=== PATIENT | female | born 1975 | race Caucasian/White ===

== ENCOUNTER 2016-09-23 18:24 | Inpatient (IN) ==
[2016-09-23] MEDS ORDERED: methylPREDNISolone 125 MG/2 ML VIAL IVP ONE (18:55)
[2016-09-23] MEDS ORDERED: Ipratropium/Albuterol Neb 3 ML IH ONE (18:55)
[2016-09-23] MEDS ORDERED: predniSONE 20 MG TABLET PO ONE (19:01)
--- NOTE | 2016-09-23 19:02 | Emergency Department Note ---
Disposition Clinical Impression: Acute exacerbation of chronic obstructive airways disease, Community acquired pneumonia Disposition: Admitted As Inpatient Condition: Good Referrals: NO,PCP [Primary Care Provider] - Forms: ED Satisfaction Letter Time of Disposition: 20:10 SOB HPI - General Chief Complaint: ED Shortness of Breath/Dyspnea Stated Complaint: TARA Time Seen by Provider: 09/23/16 19:00 Source: patient Limitations: no limitations Nursing Notes Reviewed: Yes Vital Signs Reviewed: Yes - History of Present Illness 41 year old female iwth HX of COPD non-oxygen dependent has been experiencing increased dyspnea secondary to acute bronchiitis diangosed - Related Data Previous Rx's Medication Instructions Recorded Albuterol Sulfate [Albuterol 2 puff IH Q4HR PRN #1 inhaler 08/22/16 Inhaler] Doxycycline 100 mg PO BID #14 capsule 09/19/16 GuaiFENesin/Dextromethorphan 1 each PO BID PRN #20 tab.er.12h 09/19/16 [Mucinex DM] Ipratropium/Albuterol Sulfate 4 gm IH BID PRN #1 mist.inhal 09/19/16 [Combivent Respimat Inhal [place]] Allergies Allergy/AdvReac Type Severity Reaction Status Date / Time codeine AdvReac Vomiting Verified 09/19/16 14:03 Constitutional: Reports: weakness. Denies: fever, chills, weight change Eyes: Denies: eye pain, eye discharge, vision change ENT ED: Denies: ear pain, throat pain, dental pain, hearing loss, epistaxis, congestion, dysphagia Cardiovascular: Denies: chest pain, palpitations, dyspnea on exertion, edema, syncope Respiratory: Reports: dyspnea, wheezes. Denies: hemoptysis, stridor Gastrointestinal: Denies: abdominal pain, nausea, vomiting, diarrhea, constipation, hematemesis, melena, hematochezia Genitourinary: Denies: dysuria, frequency, hematuria, discharge Musculoskeletal: Denies: back pain, neck pain, arthralgia, myalgia Integumentary: Denies: rash, abrasion, lesions Neurological: Denies: headache, weakness, numbness, paresthesias, confusion Psychiatric: Denies: anxiety, depression, suicidal thoughts, homicidal thoughts , auditory hallucinations, visual hallucinations Past Medical History - Past Medical History Medical history: Reports: COPD Surgical history: Reports: cholecystectomy Psychiatric history: Reports: no psych history SALES PLANNER 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: 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: no 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 history - Social History Smoking Status: Current every day smoker Smokeless Tobacco Status: No Alcohol use: Reports: none Drug use: Reports: none Physical Exam - General Limitations: no limitations General appearance: alert, obese - Head Head exam: atraumatic, normocephalic, normal inspection - Eye Eye exam: Present: normal appearance, PERRL, EOMI - Expanded Eye Exam Eyelids: bilateral: normal inspection Pupils: Left: reactive, Bilateral: regular, round - ENT ENT exam: normal exam, normal oropharynx, mucous membranes moist - Expanded ENT Exam External ear exam: Present: normal external inspection Mouth exam: Present: normal external inspection Teeth exam: Present: normal inspection Throat exam: Present: normal inspection - Neck Neck exam: Present: normal inspection, full ROM, trachea midline - Chest Chest inspection: Present: normal inspection, symmetric chest wall rise - Respiratory Respiratory exam: Present: wheezes (mild bilateral anterior) - Cardiovascular Cardiovascular exam: Present: regular rate, normal rhythm, normal heart sounds - Abdominal Exam Abdominal exam: Present: soft, Non-Tender. Absent: tenderness, distention, guarding, rebound, rigidity - Extremities Exam Extremities exam: Present: normal inspection, full ROM. Absent: tenderness, pedal edema - Expanded Upper Extremity Exam Shoulder exam: Present: normal inspection, full ROM Arm exam: Present: normal inspection, full ROM Elbow exam: Present: normal inspection, full ROM Forearm/Wrist exam: Present: normal inspection, full ROM Hand exam: Present: normal inspection, full ROM Vascular exam: Normal: capillary refill, radial pulse - Expanded Lower Extremity Exam Hip/Pelvis exam: Present: normal inspection, full ROM Upper leg exam: Present: normal inspection, full ROM Knee exam: Present: normal inspection, full ROM Lower leg exam: Present: normal inspection, full ROM Ankle exam: Present: normal inspection, full ROM Foot/toe exam: Present: normal inspection, full ROM Neurovascular/Tendon exam: Absent: motor deficit, sensory deficit, tendon deficit - Back Exam Back exam: Present: normal inspection, full ROM. Absent: tenderness - Neurological Exam Neurological exam: Present: alert, oriented X3 - Expanded Neurological Exam Patient oriented to: Present: person, place, time Coma Scale Eye Opening: Spontaneous Coma Scale Motor Response: Obeys Commands Coma Scale Verbal Response: Oriented Coma Scale Total: 15 - Psychiatric Psychiatric exam: Present: normal affect, normal mood - Skin Skin exam: Present: warm, dry, intact, normal color Course Course Narrative: we will do a dyspnea workup with duoneb and PO steroid and re-evaluate. - Reevaluation(s) Reevaluation #1: patient oxygen level dropped to 89% sitting at rest, and has a WBC of 17. ITEM REPAIR MANAGER shows a possible atelectasis or early pneumonia. We will start Levauquin. Time: 19:55 - Consultations Consultation #1: discussed case with hospitalist and he accepts patient to his service. Mignonnet is agrreable to plan. Time: 20:09 Vital Signs Temperature 98.1 F 09/23/16 18:26 Pulse Rate 97 09/23/16 18:26 Respiratory Rate 18 09/23/16 18:26 Blood Pressure 144/91 09/23/16 18:26 O2 Sat by Pulse Oximetry 92 09/23/16 18:26 Temperature 98.1 F 09/23/16 18:26 Pulse Rate 79 09/23/16 19:51 Respiratory Rate 18 09/23/16 19:54 Blood Pressure 133/85 09/23/16 19:51 O2 Sat by Pulse Oximetry 93 09/23/16 19:54 Oxygen Delivery Oxygen Delivery Nasal Cannula Shortness of Breath/Dyspnea - Lab Data Result diagrams: 09/23/16 19:05 09/23/16 19:05 Lab Results 09/23/16 09/23/16 09/23/16 Range/Units 19:05 19:05 19:05 WBC 17.8 H (4.3-11.1) K/mcL RBC 5.36 H (3.82-4.97) M/mcL Hgb 16.4 H (11.5-15.4) g/dL Hct 48.2 H (35.3-44.9) % MCV 89.9 (83.0-100.0) fL MCH 30.6 (28.0-33.3) pg MCHC 34.0 (31.6-35.5) g/dL RDW 13.3 (11.5-14.5) % Plt Count 319 (140-400) K/mcL MPV 9.6 (9.4-12.4) fL Immature Gran % 1.4 (0-4) % Seg Neutrophils % 71.8 % Lymphocytes % 17.8 % Monocytes % 7.2 % Eosinophils % 1.2 % Basophils % 0.6 % Neutrophils # 12.8 H (1.6-8.9) K/mcL Lymphocytes # 3.2 (0.6-4.6) K/mcL Monocytes # 1.3 (0.0-1.3) K/mcL Eosinophils # 0.2 (0.0-0.6) K/mcL Basophils # 0.1 (0.0-0.2) K/mcL Sodium 137 (136-145) mEq/L Potassium 3.8 (3.5-4.5) mEq/L Chloride 100 (98-109) mEq/L Carbon Dioxide 22 (19-29) mEq/L BUN 16 (7-20) mg/dL Creatinine 1.08 (0.57-1.11) mg/dL Est GFR ( Amer) > 60 (> 60) Est GFR (Non-Af Amer) 55 L (> 60) BUN/Creatinine Ratio 15 (6-26) Glucose 98 (70-99) mg/dL Calculated Osmolality 285 (280-300) Calcium 9.9 (8.6-10.8) mg/dL Troponin I 0.00 (0-0.03) ng/mL B-Natriuretic Peptide (0-100) pg/mL 09/23/16 Range/Units 19:05 WBC (4.3-11.1) K/mcL RBC (3.82-4.97) M/mcL Hgb (11.5-15.4) g/dL Hct (35.3-44.9) % MCV (83.0-100.0) fL MCH (28.0-33.3) pg MCHC (31.6-35.5) g/dL RDW (11.5-14.5) % Plt Count (140-400) K/mcL MPV (9.4-12.4) fL Immature Gran % (0-4) % Seg Neutrophils % % Lymphocytes % % Monocytes % % Eosinophils % % Basophils % % Neutrophils # (1.6-8.9) K/mcL Lymphocytes # (0.6-4.6) K/mcL Monocytes # (0.0-1.3) K/mcL Eosinophils # (0.0-0.6) K/mcL Basophils # (0.0-0.2) K/mcL Sodium (136-145) mEq/L Potassium (3.5-4.5) mEq/L Chloride (98-109) mEq/L Carbon Dioxide (19-29) mEq/L BUN (7-20) mg/dL Creatinine (0.57-1.11) mg/dL Est GFR ( Amer) (> 60) Est GFR (Non-Af Amer) (> 60) BUN/Creatinine Ratio (6-26) Glucose (70-99) mg/dL Calculated Osmolality (280-300) Calcium (8.6-10.8) mg/dL Troponin I (0-0.03) ng/mL B-Natriuretic Peptide < 10 (0-100) pg/mL - EKG Data EKG attestation: Yes I reviewed and interpreted this EKG. EKG results narrative: NSr with rate of 92. NO STEMI. normal intervals. no old ekg. 1849 Attestation Statement - Attestation Attestation: I personally interviewed and examined this patient and my medical decision- making was reviewed with the ED Resident Physician, Dr. Monson. I agree with the documented findings, disposition and treatment plan as described except to the extent set forth below. Patient is a 41-year-old white femal with a history of COPD who presents to the emergency department with ongoing shortness of breath cough and upper respiratory symptoms with hypoxia on room air. Patient was recently on antibiotics for bronchitis with no improvement in symptoms and arrives hypoxic but no signs of acute respiratory distress on arrival. Patients received aerosols and steroids here in the emergency department, has no obvious infiltrate although some linear scarring in the left lung base questionable for early pneumonia. Patient with no significant improvement in oxygen requirement during treatment in the ED. We will recommend she be admitted for acute exacerbation of her COPD and failure of outpatient treatment. We will cover patient with Levaquin IV and admitted for further evaluation and treatment.
[2016-09-23 19:12] LABS: Basophils # 0.1 K/mcL (0.0-0.2); Basophils % 0.6 %; Eosinophils # 0.2 K/mcL (0.0-0.6); Eosinophils % 1.2 %; Hematocrit 48.2 % (35.3-44.9); Hemoglobin 16.4 g/dL (11.5-15.4); Immature Granulocytes % 1.4 % (0-4); Lymphocytes # 3.2 K/mcL (0.6-4.6); Lymphocytes % 17.8 %; Mean Corpuscular Hemoglobin 30.6 pg (28.0-33.3); Mean Corpuscular Volume 89.9 fL (83.0-100.0); Mean Platelet Volume 9.6 fL (9.4-12.4); Monocytes # 1.3 K/mcL (0.0-1.3); Monocytes % 7.2 %; Neutrophils # 12.8 K/mcL (1.6-8.9); Platelet Count 319 K/mcL (140-400); Red Blood Count 5.36 M/mcL (3.82-4.97); Red Cell Distribution Width 13.3 % (11.5-14.5); Segmented Neutrophils % 71.8 %
[2016-09-23 19:23] LABS: BUN/Creatinine Ratio 15 (6-26); Blood Urea Nitrogen 16 mg/dL (7-20); Calcium 9.9 mg/dL (8.6-10.8); Carbon Dioxide 22 mEq/L (19-29); Chloride 100 mEq/L (98-109); Glucose 98 mg/dL (70-99); Osmolality,Calculated 285 (280-300); Potassium 3.8 mEq/L (3.5-4.5); Sodium 137 mEq/L (136-145); eGFR For African Americans > 60 (> 60); eGFR For Non-African Americans 55 (> 60)
[2016-09-23] MEDS ORDERED: Levofloxacin 750 MG/150 ML 750 MG/150 ML BAG IVPB ONE (19:55)
[2016-09-23] MEDS: Acetaminophen 325 MG TABLET PO PRN (22:19)
--- NOTE | 2016-09-24 03:49 | Internal Med History&Physical ---
Date of Encounter: 09/24/16 Time of Encounter: 01:30 Assessment and Plan (1) Acute exacerbation of chronic obstructive airways disease Current visit: Yes Status: Acute Treat with bronchodilators, levofloxacin, steroids, Mucinex, (2) Acute respiratory failure Current visit: Yes Status: Acute Due to acute exacerbation of COPD. Supplemental O2. Obtain ABG Qualifiers: Respiratory failure complication: hypoxia Qualified Code(s): J96.01 - Acute respiratory failure with hypoxia (3) Atelectasis of left lung Current visit: Yes Status: Acute Incentive spirometer (4) Nicotine dependence Current visit: Yes Status: Chronic Does not want nicotine patches at this time Qualifiers: Nicotine product type: cigarettes Substance use status: unspecified nicotine-induced disorder Qualified Code(s): F17.219 - Nicotine dependence, cigarettes, with unspecified nicotine-induced disorders (5) Leucocytosis Current visit: Yes Status: Acute Possibly due to steroid use. Monitor Qualifiers: Leukocytosis type: unspecified Qualified Code(s): D72.829 - Elevated white blood cell count, unspecified (6) DVT prophylaxis Current visit: Yes Status: Acute [facility] Internal [facility] - H&P: HPI Chief complaint: Shortness of breath Admitted From: Emergency Dept Plans for Post Hospital Care: Home History of present illness: Ms. Massey is a 41 year old female with history of COPD, who presents to the emergency department with h/o ongoing shortness of breath on exertion, cough with sputum production. Patient was recently on antibiotics for bronchitis with no improvement in symptoms. She denies fever, chills, nausea, vomiting, hematemesis, melena, chest pain, abdominal pain, dysuria, hematuria, bowel problems. She was hypoxic (sats 88-89% on RA per verbal report), in the emergency department and started on oxygen. CXR is negative for acute infiltrate. She was given bronchodilators, steroids and levofloxacin in the emergency department. She is admitted for acute exacerbation of her COPD and failure of outpatient treatment. Past Med Surg Social Fam HX - Past Medical History Medical history: COPD Psychiatric history: no psych history - Past Surgical History Surgical History: , cholecystectomy - Social History Smoking Status: Current every day smoker Packs per day: 0.25 Smokeless Tobacco Status: No Alcohol use: none Drug use: none - Family History Mother Adopted: [place]: JONES Age: 63 Family Member Ethnicity: Non- Living Status: Still Living Hx Family Cardiac Disorders: Yes (HEART DIS - [place]) Hx Family Respiratory Disorders: Yes (COPD) Hx Family Cancer: No Hx Family GI Disorders: No Hx Family Genitourinary Disorders: No Hx Family Endocrine Disorder: Yes (DM) Hx Family Musculoskeletal Disorders: No Hx Family Neuromuscular Disorders: No Hx Family Neurologic Disorders: No Hx Family HEENT Disorders: No Hx Family Autoimmune Disorders: No Hx Family Reproductive Disorders: No Hx Family Psychosocial Disorders: No Hx Family Medical Disorders: No Internal Medicine - H&P: Meds Albuterol Sulfate [Albuterol Inhaler] 2 puff IH Q4HR PRN #1 inhaler 08/22/16 [Rx ] Doxycycline 100 mg PO BID #14 capsule 09/19/16 [Rx] GuaiFENesin/Dextromethorphan [Mucinex DM] 1 each PO BID PRN #20 tab.er.12h 09/19 [Rx] Ipratropium/Albuterol Sulfate [Combivent Respimat Inhal [place]] 4 gm IH BID PRN # 1 mist.inhal 09/19/16 [Rx] Allergies codeine Adverse Reaction (Verified 09/19/16 14:03) Vomiting All Systems PM: A 10-system review of systems was performed and is negative for pertinent findings except as documented above in the HPI. - Constitutional Vitals: Temp Pulse Resp BP Pulse Ox 98.2 F 83 15 116/77 92 09/24/16 03:17 09/24/16 03:17 09/24/16 03:17 09/24/16 03:17 09/24/16 03:17 Exam: General: Not in acute distress at the time of my evaluation HEENT: Oral mucosa is moist. No conjunctival palor or scleral icterus Neck: No obvious neck swellings Lungs: Bilateral occasional wheeze Cardiac: Regular rate and rhythm. No significant murmurs Abdomen: Obese, non tender. Bowel sounds present Genitourinary: No sanchez catheter Neurological: Alert and oriented. No gross localizing deficits Psych: Not aggressive or agitated Extremities: Mild leg edema Skin: No generalized rash Internal Med - H&P Results - Labs CBC & Chem 7: 09/23/16 19:05 09/23/16 19:05 - EKG Data -: EKG Interpreted by Myself EKG shows normal: sinus rhythm Rate: normal - Impressions ITS Impressions Chest X-Ray 09/23/16 18:56 IMPRESSION: Subtle linear density left lung base probably atelectasis or fibrosis. Otherwise examination is unremarkable and unchanged from prior D/ / Juan Manning MD / Juan Manning MD Interpreting Provider: Juan Manning MD
[2016-09-24] MEDS ORDERED: Naloxone 0.4 MG/ML INJ IVP PRN (03:53)
[2016-09-24] MEDS ORDERED: Ipratropium/Albuterol Neb 3 ML IH PRN (03:58)
[2016-09-24] MEDS: Ipratropium/Albuterol Neb 3 ML IH SCH ×4 (04:30→23:00)
[2016-09-24 05:40] LABS: Basophils # 0.1 K/mcL (0.0-0.2); Basophils % 0.3 %; Eosinophils % 0.1 %; Hematocrit 47.6 % (35.3-44.9); Hemoglobin 16.3 g/dL (11.5-15.4); Immature Granulocytes % 1.3 % (0-4); Lymphocytes # 1.2 K/mcL (0.6-4.6); Lymphocytes % 7.2 %; Mean Corpuscular HGB Conc 34.2 g/dL (31.6-35.5); Mean Corpuscular Hemoglobin 31.3 pg (28.0-33.3); Mean Corpuscular Volume 91.4 fL (83.0-100.0); Mean Platelet Volume 10.4 fL (9.4-12.4); Monocytes # 0.5 K/mcL (0.0-1.3); Monocytes % 2.8 %; Platelet Count 316 K/mcL (140-400); Red Blood Count 5.21 M/mcL (3.82-4.97); Red Cell Distribution Width 13.3 % (11.5-14.5); Segmented Neutrophils % 88.3 %
[2016-09-24 05:48] LABS: Neutrophils # 14.8 K/mcL (1.6-8.9)
[2016-09-24] MEDS: *HR* Enoxaparin 40 MG/0.4 ML SYRINGE SQ SCH (05:58)
[2016-09-24] MEDS: MethylPREDNISolone 40 MG/ML VIAL IVP SCH ×4 (05:58→23:18)
[2016-09-24 06:14] LABS: BUN/Creatinine Ratio 12 (6-26); Blood Urea Nitrogen 14 mg/dL (7-20); Calcium 9.9 mg/dL (8.6-10.8); Carbon Dioxide 24 mEq/L (19-29); Chloride 99 mEq/L (98-109); Glucose 158 mg/dL (70-99); Magnesium 2.1 mg/dL (1.6-2.6); Osmolality,Calculated 288 (280-300); Potassium 4.8 mEq/L (3.5-4.5); Sodium 137 mEq/L (136-145); eGFR For African Americans > 60 (> 60); eGFR For Non-African Americans 51 (> 60)
[2016-09-24 06:49] LABS: Platelet Estimate Normal (Normal)
[2016-09-24] MEDS: levoFLOXacin 750 MG TABLET PO SCH (08:08)
[2016-09-24] MEDS: 0.9 % Sodium Chloride 1,000 ML IVC SCH ×2 (10:21→20:14)
[2016-09-24] MEDS: Acetaminophen 325 MG TABLET PO PRN (10:24)
--- NOTE | 2016-09-24 11:28 | Event Note ---
Date of Encounter: 09/24/16 Time of Encounter: 11:00 41-year-old female patient admitted with acute exacerbation of COPD. Continue still have difficulty in breathing while the tachypnea seems to be improving. Continue breathing treatments as scheduled. Continue IV steroids.
[2016-09-24] MEDS: *HR* HYDROcodone/Acet 5/325 mg TABLET PO PRN ×3 (12:52→23:28)
[2016-09-24] MEDS: Nicotine 21 MG PATCH.TD24 TD SCH (13:32)
--- NOTE | 2016-09-24 18:46 | Electrocardiograph Report ---
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
[2016-09-25] MEDS: Ipratropium/Albuterol Neb 3 ML IH SCH ×2 (04:51→10:50)
[2016-09-25] MEDS: *HR* Enoxaparin 40 MG/0.4 ML SYRINGE SQ SCH (05:17)
[2016-09-25] MEDS: MethylPREDNISolone 40 MG/ML VIAL IVP SCH (05:17)
[2016-09-25 07:23] VITALS: BP 135/71
[2016-09-25] MEDS: Nicotine 21 MG PATCH.TD24 TD SCH (08:36)
[2016-09-25] MEDS: levoFLOXacin 750 MG TABLET PO SCH (08:37)
--- NOTE | 2016-09-25 11:10 | Discharge Summary ---
Date of Encounter: 09/25/16 Time of Encounter: 10:20 - Discharge Diagnosis (1) Acute exacerbation of chronic obstructive airways disease Priority: Primary Status: Acute (2) Acute respiratory failure Priority: Secondary Status: Resolved Qualifiers: Respiratory failure complication: hypoxia Qualified Code(s): J96.01 - Acute respiratory failure with hypoxia (3) Atelectasis of left lung Priority: Secondary Status: Acute (4) Nicotine dependence Priority: Secondary Status: Chronic Qualifiers: Nicotine product type: cigarettes Substance use status: unspecified nicotine-induced disorder Qualified Code(s): F17.219 - Nicotine dependence, cigarettes, with unspecified nicotine-induced disorders (5) Leucocytosis Priority: Secondary Status: Acute Qualifiers: Leukocytosis type: other Qualified Code(s): D72.828 - Other elevated white blood cell count - Discharge Medications Prescriptions: Albuterol Sulfate [Albuterol Inhaler] 2 puff IH Q4HR PRN #1 inhaler PRN Reason: Cough Budesonide/Formoterol 160/4.5 [Symbicort 160/4.5] 1 puff IH BIDR #1 hfa.aer.ad Nicotine Patch [Nicoderm] 21 mg TD DAILY #30 patch.td24 PredniSONE 10 mg PO DAILY 8 Days Tiotropium [Spiriva] 18 mcg IH 0700 #30 capsule Home Medications: Doxycycline 100 mg PO BID #14 capsule 09/19/16 [Rx] GuaiFENesin/Dextromethorphan [Mucinex Dm] 1 each PO BID PRN #20 tab.er.12h 09/19 [Rx] Ipratropium/Albuterol Sulfate [Combivent Respimat Inhal [place]] 4 gm IH BID PRN # 1 mist.inhal 09/19/16 [Rx] Albuterol Sulfate [Albuterol Inhaler] 2 puff IH Q4HR PRN #1 inhaler 09/25/16 [Rx ] Budesonide/Formoterol 160/4.5 [Symbicort 160/4.5] 1 puff IH BIDR #1 hfa.aer.ad 09/25/16 [Rx] Nicotine Patch [Nicoderm] 21 mg TD DAILY #30 patch.td24 09/25/16 [Rx] PredniSONE 10 mg PO DAILY 8 Days 09/25/16 [Rx] Tiotropium [Spiriva] 18 mcg IH 0700 #30 capsule 09/25/16 [Rx] Allergies/Adverse Reactions: Allergies codeine Adverse Reaction (Verified 09/19/16 14:03) Vomiting Date of admission: 09/24/16 03:53 Primary care physician: PCP BRITNEY Discharging clinician: Brenda Laguna Anticipated date of discharge: 09/25/16 - Patient Status Disposition: Home, Self-Care Condition: Good Functional capacity at discharge: independent ambulation Overall status at discharge: patient is progressing back to baseline - Discharge Instructions Instructions: Albuterol (By mouth), Prednisone (By mouth), Nicotine (Absorbed through the skin), Tiotropium (By breathing), Budesonide/Formoterol (By breathing), Acute Respiratory Distress Syndrome (DC), Chronic Obstructive Pulmonary Disease (DC), Pneumonia (DC) Follow Up With: NO,PCP [Primary Care Provider] - (Needs new PCP. Make follow-up appointment in 1-2 weeks Please call [phone]) Forms: Work/School Release - Diet and Activity Activity: return to school once cleared by your PCP/specialist (Return to work on 09/30/16) Diet: low salt diet Hospital course: Ms. Massey is a 41 year old female with a history of COPD he was admitted here with acute respiratory failure related to acute COPD exacerbation. She was treated for this with IV steroids, bronchodilator nebs and O2 supplementation. She has improved significantly with this treatment regimen and is now feeling much better. She is no longer requiring O2 supplementation. She is stable for discharge at this time and will follow up with primary care provider for further management of her COPD. I am also prescribing her Symbicort and Spiriva. She will also complete a short course of steroid taper. Patient does have slight elevation in her creatinine today. She is advised to drink plenty of fluids and recheck her BMP. A prescription for this has been provided to the patient. - Time Spent with Patient Total time spent providing and/or coordinating discharge services: Greater than 30 minutes (40 min) - Constitutional Vitals: Temp Pulse Resp BP Pulse Ox 98.2 F 80 14 135/71 91 09/25/16 07:22 09/25/16 07:22 09/25/16 10:51 09/25/16 07:22 09/25/16 10:51 General appearance: Present: A&O X 3, no acute distress, answers questions appropriately - Neck Neck exam general surgery: Present: supple, trachea midline. Absent: lymphadenopathy - Respiratory Respiratory exam: Present: CTAB, wheezes (mild). Absent: accessory muscle use, rales, rhonchi - Cardiovascular Cardiovascular exam: Present: RRR, +S1, +S2. Absent: diastolic murmur, gallop, rubs, systolic murmur - GI/Abdominal GI/Abdominal exam: Present: normal bowel sounds, soft, no peritoneal signs. Absent: distended, tenderness - Extremities Exam Extremities exam: Present: warm, radial pulses palpable and symetrical. Absent : calf tenderness, cyanotic, pedal edema - Attending Attestation This document has been at least partially created by [employer] voice recognition technology by Dr. Laguan. Errors in grammar, wording or other phrases may exist. If errors are found after the documentation is signed, they will be addressed individually in the addendum section of this document when appropriate.
== END 2016-09-25 11:40 | disposition home or self-care (01) | DRG 190 ==
LOC: 3BNU 18:24 → EMEROO 18:24 → 3BNU 21:06 → SUATTDRO 09-24 03:53
PROVIDERS: ADMIT Internal Medicine; ATTEND Internal Medicine

== ENCOUNTER 2018-02-10 11:53 | Inpatient (IN) ==
[2018-02-10] MEDS ORDERED: 0.9 % Sodium Chloride 1,000 ML IVC ONE (12:55)
[2018-02-10] MEDS ORDERED: Ipratropium/Albuterol Neb 3 ML IH ONE (12:57)
[2018-02-10 13:44] LABS: Basophils # 0.1 K/mcL (0.0-0.2); Basophils % 0.4 %; Hematocrit 40.7 % (35.3-44.9); Hemoglobin 13.5 g/dL (11.5-15.4); Immature Granulocytes % 0.6 % (0-4); Lymphocytes % 4.9 %; Mean Corpuscular HGB Conc 33.2 g/dL (31.6-35.5); Mean Corpuscular Hemoglobin 30.3 pg (28.0-33.3); Mean Corpuscular Volume 91.5 fL (83.0-100.0); Mean Platelet Volume 10.2 fL (9.4-12.4); Monocytes # 1.1 K/mcL (0.0-1.3); Monocytes % 5.4 %; Neutrophils # 17.7 K/mcL (1.6-8.9); Platelet Count 248 K/mcL (140-400); Red Blood Count 4.45 M/mcL (3.82-4.97); Red Cell Distribution Width 14.5 % (11.5-14.5); Segmented Neutrophils % 88.7 %
[2018-02-10 13:44] LABS: Bilirubin,Urine Negative (Negative); Blood,Urine Negative (Negative); Color,Urine Yellow (Yellow); Glucose,Urine (UA) Normal (Normal); Ketones,Urine Negative (Negative); Leukocyte Esterase,Urine Negative (Negative); Nitrite,Urine Negative (Negative); PH,Urine 5.5 pH Units (5.0-8.0); Protein,Urine Trace mg/dL (Neg-Trace); Specific Gravity,Urine 1.016 (1.010-1.025); Urobilinogen,Urine Normal (Normal)
[2018-02-10 13:47] LABS: Bacteria,Urine None Seen per hpf (None-Few); Hyaline Casts,Urine None Seen per lpf (None-Few); Squamous Epithelial Cell,Urine Many per lpf (None-Few)
[2018-02-10 13:48] LABS: Clarity,Urine Slightly Hazy (Clear)
[2018-02-10 14:04] LABS: Alanine Aminotransferase 12 Units/L (7-52); Albumin 3.9 g/dL (3.5-5.7); Albumin/Globulin Ratio 1.4 (1.1-2.2); Alkaline Phosphatase 44 Units/L (34-104); Aspartate Amino Transferase 13 Units/L (13-39); BUN/Creatinine Ratio 7 (6-26); Bilirubin,Direct 0.2 mg/dL (0.0-0.2); Bilirubin,Indirect 0.4 mg/dL (0.0-1.2); Bilirubin,Total 0.6 mg/dL (0.3-1.0); Blood Urea Nitrogen 7 mg/dL (6-20); Carbon Dioxide 24 mEq/L (23-29); Chloride 105 mEq/L (98-107); Globulin 2.7 g/dL (2.4-3.5); Glucose 103 mg/dL (70-105); Osmolality,Calculated 280 (280-300); Potassium 3.4 mEq/L (3.5-5.1); Sodium 136 mEq/L (136-145); Total Protein 6.6 g/dL (6.4-8.9); eGFR For Non-African Americans > 60 (> 60)
[2018-02-10] MEDS ORDERED: Levofloxacin 750 MG/150 ML 750 MG/150 ML BAG IVPB ONE (15:11)
[2018-02-10] MEDS ORDERED: methylPREDNISolone 125 MG/2 ML VIAL IVP ONE (15:13)
--- NOTE | 2018-02-10 16:10 | Emergency Department Note ---
Disposition Clinical Impression: Pneumonia Qualifiers: Pneumonia type: due to unspecified organism Laterality: unspecified laterality Lung location: unspecified part of lung Qualified Code(s): J18.9 - Pneumonia, unspecified organism Cellulitis Qualifiers: Site of cellulitis: unspecified site Qualified Code(s): L03.90 - Cellulitis, unspecified Sepsis Qualifiers: Sepsis type: sepsis due to unspecified organism Qualified Code(s): A41.9 - Sepsis, unspecified organism Disposition: Admitted As Inpatient Condition: Good Referrals: Vazquez Savage MD [Primary Care Provider] - Forms: ED Satisfaction Letter General Adult HPI - General Chief complaint: ED Fever Stated complaint: chills,congestion Time Seen by Provider: 02/10/18 12:37 Source: patient Limitations: no limitations Nursing Notes Reviewed: Yes Vital Signs Reviewed: Yes - History of Present Illness HPI Narrative: Patient presents to the emergency department today for multiple complaints. Patient states that she has had a cough and sputum production. Recently treated for COPD and pneumonia 2 weeks ago. Steroids and amoxicillin. Patient states that her breathing has not gotten any better and continues to have cough. She states that she woke up yesterday with mild redness to her right ricardo. This has continued to progress. She has been admitted for cellulitis and antibiotics in the past. She states that yesterday she started having fevers and chills. Today complaining of generalized body aches. Patient will undergo further evaluation sepsis. Pain Scale: 8 - Related Data Previous Rx's Medication Instructions Recorded Ipratropium/Albuterol Sulfate 4 gm IH BID PRN #1 mist.inhal 09/19/16 [Combivent Respimat Inhal Baxter] Albuterol Sulfate [Albuterol 2 puff IH Q4HR PRN #1 inhaler 09/25/16 Inhaler] Budesonide/Formoterol 160/4.5 1 puff IH BIDR #1 hfa.aer.ad 09/25/16 [Symbicort 160/4.5] Nicotine Patch [Nicoderm] 21 mg TD DAILY #30 patch.td24 09/25/16 Tiotropium [Spiriva] 18 mcg IH 0700 #30 capsule 09/25/16 Ipratropium/Albuterol Neb [Duoneb] 3 ml IH Q6H PRN #30 vial.neb 08/27/17 Promethazine/Dextromethorphan 5 ml PO Q4-6H PRN #120 ml 08/27/17 [Promethazine-Dm Solution] Amoxicillin/Clavulanate [Augmentin] 875 mg PO BIDWM #20 tablet 01/22/18 Fluticasone Propionate Nasal 2 spray NS DAILY #1 bottle 01/22/18 [Flonase] HYDROcodone BIT/Homatropine LQ 5 ml PO Q6HR PRN 5 Days #100 ml 01/22/18 [Hycodan Syrup] predniSONE [PredniSONE] 20 mg PO DAILY #13 tablet 01/22/18 Allergies Allergy/AdvReac Type Severity Reaction Status Date / Time codeine Allergy Itching Verified 01/22/18 17:32 Review of Systems: CONSTITUTIONAL: Fever, chills, weakness and fatigue HEENT: Eyes: No visual changes. Ears, Nose, Throat: No hearing loss, difficulty talking or unable to swallow. SKIN: Erythema of the right lower extremity CARDIOVASCULAR: No chest pain, chest pressure or chest discomfort. No palpitations or edema. RESPIRATORY: Shortness of breath cough and sputum production GASTROINTESTINAL: No anorexia, nausea, vomiting or diarrhea. No abdominal pain or blood. GENITOURINARY: No burning on urination or hematuria. NEUROLOGICAL: No headache, dizziness, syncope, paralysis, ataxia, numbness or tingling in the extremities. No change in bowel or bladder control. MUSCULOSKELETAL: No muscle pain, back pain, joint pain or stiffness. 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 Head: Normocephalic Atraumatic Eyes: PERRL, EOMI ENT: Airway patent, no stridor Neck: supple Chest: Diffuse wheezing Cardiac: Regular rhythm Abdomen: soft, nontender, nondistended; no guarding, rebound, or tenderness to percussion Musculoskeletal: Calves symmetric, nontender Skin: 7 x 10 cm erythema to the right ricardo Neuro: Alert and Oriented to person, place, and time; No focal deficit - General Limitations: no limitations General appearance: alert, in no apparent distress Course - Reevaluation(s) Reevaluation #1: Patient with concern for pneumonia on x-ray. Patient had recent treatment for COPD exacerbation and pneumonia. Amoxicillin. Finished approximately 2 weeks ago. Continues to have elevated leukocytosis. Patient with elevated heart rate and temperature. Patient given Levaquin and vancomycin. Patient will be admitted for further evaluation and treatment. - Consultations Consultation #1: Discussed with hospitalist. Patient accepted for admission. Vital Signs Temperature 100.3 F H 02/10/18 12:13 Pulse Rate 106 02/10/18 12:13 Respiratory Rate 20 02/10/18 12:13 Blood Pressure 136/82 02/10/18 12:13 O2 Sat by Pulse Oximetry 97 02/10/18 12:13 Temperature 100.5 F H 02/10/18 14:47 Pulse Rate 94 02/10/18 14:47 Respiratory Rate 18 02/10/18 14:47 Blood Pressure 124/72 02/10/18 14:47 O2 Sat by Pulse Oximetry 97 02/10/18 14:47 Oxygen Delivery Oxygen Delivery Room Air Medical Decision Making - Lab Data Result diagrams: 02/10/18 13:27 02/10/18 13:27 Lab Results 02/10/18 02/10/18 02/10/18 Range/Units 12:41 13:27 13:27 WBC 20.0 H (4.3-11.1) K/mcL RBC 4.45 (3.82-4.97) M/mcL Hgb 13.5 (11.5-15.4) g/dL Hct 40.7 (35.3-44.9) % MCV 91.5 (83.0-100.0) fL MCH 30.3 (28.0-33.3) pg MCHC 33.2 (31.6-35.5) g/dL RDW 14.5 (11.5-14.5) % Plt Count 248 (140-400) K/mcL MPV 10.2 (9.4-12.4) fL Immature Gran % 0.6 (0-4) % Seg Neutrophils % 88.7 % Lymphocytes % 4.9 % Monocytes % 5.4 % Eosinophils % 0.0 % Basophils % 0.4 % Neutrophils # 17.7 H (1.6-8.9) K/mcL Lymphocytes # 1.0 (0.6-4.6) K/mcL Monocytes # 1.1 (0.0-1.3) K/mcL Eosinophils # 0.0 (0.0-0.6) K/mcL Basophils # 0.1 (0.0-0.2) K/mcL Sodium 136 (136-145) mEq/L Potassium 3.4 L (3.5-5.1) mEq/L Chloride 105 (98-107) mEq/L Carbon Dioxide 24 (23-29) mEq/L BUN 7 (6-20) mg/dL Creatinine 0.94 (0.60-1.20) mg/dL Est GFR ( Amer) > 60 (> 60) Est GFR (Non-Af Amer) > 60 (> 60) BUN/Creatinine Ratio 7 (6-26) Glucose 103 (70-105) mg/dL Calculated Osmolality 280 (280-300) Lactic Acid (0.5-2.2) mmol/L Calcium 9.0 (8.6-10.3) mg/dL Total Bilirubin 0.6 (0.3-1.0) mg/dL Direct Bilirubin 0.2 (0.0-0.2) mg/dL Indirect Bilirubin 0.4 (0.0-1.2) mg/dL AST 13 (13-39) Units/L ALT 12 (7-52) Units/L Alkaline Phosphatase 44 (34-104) Units/L Serum Total Protein 6.6 (6.4-8.9) g/dL Albumin 3.9 (3.5-5.7) g/dL Globulin 2.7 (2.4-3.5) g/dL Albumin/Globulin Ratio 1.4 (1.1-2.2) Urine Color Yellow (Yellow) Urine Clarity Slightly Hazy (Clear) Urine pH 5.5 (5.0-8.0) pH Units Ur Specific [place] 1.016 (1.010-1.025) Urine Protein Trace (Neg-Trace) mg/dL Urine Glucose (UA) Normal (Normal) mg/dL Urine Ketones Negative (Negative) mg/dL Urine Blood Negative (Negative) Urine Nitrite Negative (Negative) Urine Bilirubin Negative (Negative) Urine Urobilinogen Normal (Normal) mg/dL Ur Leukocyte Esterase Negative (Negative) Ur Squamous Epith Cells Many H (None-Few) per lpf Urine Bacteria None Seen (None-Few) per hpf Hyaline Casts None Seen (None-Few) per lpf Ur Culture Indicated? NO (NO) 02/10/18 Range/Units 13:27 WBC (4.3-11.1) K/mcL RBC (3.82-4.97) M/mcL Hgb (11.5-15.4) g/dL Hct (35.3-44.9) % MCV (83.0-100.0) fL MCH (28.0-33.3) pg MCHC (31.6-35.5) g/dL RDW (11.5-14.5) % Plt Count (140-400) K/mcL MPV (9.4-12.4) fL Immature Gran % (0-4) % Seg Neutrophils % % Lymphocytes % % Monocytes % % Eosinophils % % Basophils % % Neutrophils # (1.6-8.9) K/mcL Lymphocytes # (0.6-4.6) K/mcL Monocytes # (0.0-1.3) K/mcL Eosinophils # (0.0-0.6) K/mcL Basophils # (0.0-0.2) K/mcL Sodium (136-145) mEq/L Potassium (3.5-5.1) mEq/L Chloride (98-107) mEq/L Carbon Dioxide (23-29) mEq/L BUN (6-20) mg/dL Creatinine (0.60-1.20) mg/dL Est GFR ( Amer) (> 60) Est GFR (Non-Af Amer) (> 60) BUN/Creatinine Ratio (6-26) Glucose (70-105) mg/dL Calculated Osmolality (280-300) Lactic Acid 1.4 (0.5-2.2) mmol/L Calcium (8.6-10.3) mg/dL Total Bilirubin (0.3-1.0) mg/dL Direct Bilirubin (0.0-0.2) mg/dL Indirect Bilirubin (0.0-1.2) mg/dL AST (13-39) Units/L ALT (7-52) Units/L Alkaline Phosphatase (34-104) Units/L Serum Total Protein (6.4-8.9) g/dL Albumin (3.5-5.7) g/dL Globulin (2.4-3.5) g/dL Albumin/Globulin Ratio (1.1-2.2) Urine Color (Yellow) Urine Clarity (Clear) Urine pH (5.0-8.0) pH Units Ur Specific [place] (1.010-1.025) Urine Protein (Neg-Trace) mg/dL Urine Glucose (UA) (Normal) mg/dL Urine Ketones (Negative) mg/dL Urine Blood (Negative) Urine Nitrite (Negative) Urine Bilirubin (Negative) Urine Urobilinogen (Normal) mg/dL Ur Leukocyte Esterase (Negative) Ur Squamous Epith Cells (None-Few) per lpf Urine Bacteria (None-Few) per hpf Hyaline Casts (None-Few) per lpf Ur Culture Indicated? (NO)
[2018-02-10] MEDS ORDERED: Naloxone 0.4 MG/ML INJ IVP PRN (16:24)
[2018-02-10] MEDS ORDERED: HYDROcodone BIT/Homatropine LQ 5 MG/5 ML UDC PO PRN (16:34)
[2018-02-10] MEDS ORDERED: Vancomycin 1,750 MG in 0.9 % Sodium Chloride 250 ML IVPB SCH (17:00)
--- NOTE | 2018-02-10 18:02 | Internal Med History&Physical ---
Date of Encounter: 02/10/18 Time of Encounter: 17:00 Internal Medicine - H&P: HPI Chief complaint: Right leg warmth and redness of 2 days duration, shortness of breath History of present illness: Ms. Massey is a 42 year old female with pmh of COPD , hypertension, recurrent cellulitis presenting with complaints of right ricardo redness, warmth and pain starting this am. Patient notes she started having fevers and chills last night as well as generalized body aches and malaise. When she woke up her right ricardo was tender, warm, and red and she noticed this was similar to a prior episode of cellulitis and that's why she came to the ER. She also noted worsening cough and shortness of breath that has been going on for about 2 weeks. She was recently in the ER for complaints of sinusitis and completed a course of antibiotics. In the ER today, her WBc was noted to be elevated at 20 and she was febrile at 100.5. She was started on broad spectrum antibiotics with vanc and levaquin and given a dose of steroids. She is being admitted for further management Past Med Surg Social Fam HX - Past Medical History Medical history: COPD, hypertension, other Psychiatric history: no psych history - Past Surgical History Surgical History: , cholecystectomy - Social History Smoking Status: Current every day smoker Smokeless Tobacco Status: No Alcohol use: none Drug use: none - Family History Mother Adopted: No Family Member Ethnicity: Non- Living Status: Still Living Hx Family Cardiac Disorders: Yes (HEART DIS - ND) Hx Family Respiratory Disorders: Yes (COPD) Hx Family Cancer: No Hx Family GI Disorders: No Hx Family Endocrine Disorder: Yes (DM) Hx Family Neuromuscular Disorders: No Hx Family Neurologic Disorders: No Hx Family HEENT Disorders: No Hx Family Autoimmune Disorders: No Internal Medicine - H&P: Meds Ipratropium/Albuterol Sulfate [Combivent Respimat Inhal [place]] 4 gm IH BID PRN # 1 mist.inhal 09/19/16 [Rx] Albuterol Sulfate [Albuterol Inhaler] 2 puff IH Q4HR PRN #1 inhaler 09/25/16 [Rx ] Budesonide/Formoterol 160/4.5 [Symbicort 160/4.5] 1 puff IH BIDR #1 hfa.aer.ad 09/25/16 [Rx] Nicotine Patch [Nicoderm] 21 mg TD DAILY #30 patch.td24 09/25/16 [Rx] Tiotropium [Spiriva] 18 mcg IH 0700 #30 capsule 09/25/16 [Rx] Ipratropium/Albuterol Neb [Duoneb] 3 ml IH Q6H PRN #30 vial.neb 08/27/17 [Rx] Promethazine/Dextromethorphan [Promethazine-Dm Solution] 5 ml PO Q4-6H PRN #120 ml 08/27/17 [Rx] Amoxicillin/Clavulanate [Augmentin] 875 mg PO BIDWM #20 tablet 01/22/18 [Rx] Fluticasone Propionate Nasal [Flonase] 2 spray NS DAILY #1 bottle 01/22/18 [Rx] HYDROcodone BIT/Homatropine LQ [Hycodan Syrup] 5 ml PO Q6HR PRN 5 Days #100 ml 01/22/18 [Rx] predniSONE [PredniSONE] 20 mg PO DAILY #13 tablet 01/22/18 [Rx] 3 Allergy/AdvReac Type Severity Reaction Status Date / Time codeine Allergy Itching Verified 01/22/18 17:32 All Systems PM: A 10-system review of systems was performed and is negative for pertinent findings except as documented above in the HPI. - Constitutional Constitutional: as per HPI, chills, fever(s), no night sweats - EENT Eyes: no change in vision, no discharge, no pain, no photophobia Ears: no ear discharge, no ear pain, no tinnitus Nose, mouth and throat: no dysphagia, no nasal discharge, no neck pain, no sore throat - Cardiovascular Cardiovascular ROS IM: dyspnea, no chest pain, no diaphoresis, no lightheadedness, no palpitations, no syncope - Respiratory Respiratory: cough, dyspnea, no wheezing, no excessive phlegm production - Gastrointestinal Gastrointestinal: no abdominal pain, no diarrhea, no hematemesis, no hematochezia, no melena, no nausea, no vomiting - Genitourinary Genitourinary: no change in urinary stream, no dysuria, no flank pain, no hematuria - Musculoskeletal Musculoskeletal ROS IM: no numbness, no tingling - Integumentary Integumentary IM: no rash, no unusual bruising Additional comments: Right ricardo redness and warmth - Neurological Neurological ROS: no confusion, no convulsions, no focal weakness, no numbness, no tingling, no tremor(s) - Hematologic/Lymphatic Hematologic/Lymphatic: no easy bruising - Constitutional Vitals: Temp Pulse Resp BP Pulse Ox 97.9 F 85 17 132/92 94 02/10/18 17:41 02/10/18 17:41 02/10/18 17:41 02/10/18 17:41 02/10/18 17:41 Exam: Obese - Head Head exam: Present: atraumatic, normocephalic - Eye Eye exam: Present: PERRL, conjuntiva pink, sclera anicteric Pupils: Present: PERRL - Neck Neck exam general surgery: Present: supple, trachea midline. Absent: lymphadenopathy - Respiratory Respiratory exam: Present: decreased breath sounds. Absent: accessory muscle use, rales, rhonchi, wheezes - Cardiovascular Cardiovascular exam: Present: RRR, +S1, +S2. Absent: diastolic murmur, gallop, rubs, systolic murmur - GI/Abdominal GI/Abdominal exam: Present: normal bowel sounds, soft, no peritoneal signs. Absent: distended, tenderness - Extremities Exam Extremities exam: Present: warm, radial pulses palpable and symmetrical. Absent : calf tenderness, cyanotic, pedal edema Additional comments: Right ricardo redness, warmth and tenderness - Neurological Exam Neurological exam: Present: CN II-XII intact, oriented X3, no focal deficits. Absent: pronater drift, facial droop, speech deficit - Skin Skin exam: Present: dry, intact Internal Med - H&P Results - Labs CBC & Chem 7: 02/10/18 13:27 02/10/18 13:27 - Assessment and plan (1) Sepsis Current Visit: Yes Status: Acute Assessment and plan: Sepsis likely 2/2 to pneumonia and cellulitis. Pt has elevated WBC and is febrile. Obtain blood cultures, lactic acid. CXR shows bibasilar opacities. Patient was recently in the hospital for an ER visit. Will start on broad spectrum antibiotics with vancomycin, zosyn and levaquin. Qualifiers: Sepsis type: sepsis due to unspecified organism Qualified Code(s): A41.9 - Sepsis, unspecified organism (2) Cellulitis Current Visit: Yes Status: Acute Assessment and plan: Sepsis likely 2/2 to pneumonia and recurrent cellulitis. Pt has elevated WBC and is febrile. Obtain blood cultures, lactic acid. CXR shows bibasilar opacities. Has right leg redness and warmth. Patient was recently in the hospital for an ER visit. Will start on broad spectrum antibiotics with vancomycin, zosyn and levaquin. Qualifiers: Site of cellulitis: extremity Laterality: right Qualified Code(s): L03.115 - Cellulitis of right lower limb (3) Pneumonia Current Visit: Yes Status: Acute Assessment and plan: Mervin MATHISp. Follow up blood cultures. Continue broad spectrum antibiotics Qualifiers: Pneumonia type: due to unspecified organism Laterality: bilateral Lung location: unspecified part of lung Qualified Code(s): J18.9 - Pneumonia, unspecified organism (4) Acute exacerbation of chronic obstructive airways disease Current Visit: No Status: Acute Assessment and plan: On nebs, steroids and antibiotics (5) DVT prophylaxis Current Visit: No Status: Acute Assessment and plan: Heparin sc q 12 - Time Spent With Patient Total time spent is greater than 50% in coordination of care (as documented) at patient's floor/unit and/or counseling patient:
[2018-02-10] MEDS: Potassium Chloride Elixir 20 MEQ/15 ML UDC PO SCH ×2 (18:18→21:17)
[2018-02-10] MEDS: Acetaminophen 325 MG TABLET PO SCH (18:19)
[2018-02-10] MEDS: *HR* Heparin 5,000 UNIT/ML VIAL SQ SCH (18:33)
[2018-02-10] MEDS ORDERED: Vancomycin 500 MG in 0.9 % Sodium Chloride Mini Bag 100 ML IVPB ONE (19:00)
[2018-02-10] MEDS: Budesonide/Formoterol 160/4.5 1 PUFF INH IH SCH (20:00)
[2018-02-10] MEDS: Ipratropium/Albuterol Neb 3 ML IH SCH ×2 (20:00→23:56)
[2018-02-11] MEDS ORDERED: methylPREDNISolone 125 MG/2 ML VIAL IVP SCH
[2018-02-11] MEDS: Acetaminophen 325 MG TABLET PO SCH ×4 (01:03→17:34)
[2018-02-11] MEDS: MethylPREDNISolone 40 MG/ML VIAL IVP SCH ×2 (01:04→09:17)
[2018-02-11] MEDS: Piperacillin/Tazobactam 3.375 GM in 0.9 % Sodium Chloride Mini Bag 100 ML IVPB SCH ×3 (01:04→15:47)
[2018-02-11] MEDS: Ipratropium/Albuterol Neb 3 ML IH SCH ×6 (04:11→23:28)
[2018-02-11 06:16] LABS: Basophils % 0.1 %; Hematocrit 41.2 % (35.3-44.9); Hemoglobin 13.8 g/dL (11.5-15.4); Lymphocytes # 0.7 K/mcL (0.6-4.6); Lymphocytes % 3.7 %; Mean Corpuscular HGB Conc 33.5 g/dL (31.6-35.5); Mean Corpuscular Hemoglobin 30.5 pg (28.0-33.3); Mean Corpuscular Volume 90.9 fL (83.0-100.0); Mean Platelet Volume 10.5 fL (9.4-12.4); Monocytes # 0.2 K/mcL (0.0-1.3); Monocytes % 1.1 %; Neutrophils # 16.4 K/mcL (1.6-8.9); Platelet Count 270 K/mcL (140-400); Red Blood Count 4.53 M/mcL (3.82-4.97); Red Cell Distribution Width 14.3 % (11.5-14.5); Segmented Neutrophils % 94.1 %
[2018-02-11] MEDS: *HR* Heparin 5,000 UNIT/ML VIAL SQ SCH ×2 (06:33→17:39)
[2018-02-11 06:38] LABS: BUN/Creatinine Ratio 11 (6-26); Blood Urea Nitrogen 9 mg/dL (6-20); Calcium 9.1 mg/dL (8.6-10.3); Carbon Dioxide 18 mEq/L (23-29); Chloride 110 mEq/L (98-107); Glucose 220 mg/dL (70-105); Magnesium 1.9 mg/dL (1.6-2.6); Osmolality,Calculated 287 (280-300); Phosphorous 1.7 mg/dL (2.7-4.5); Potassium 4.1 mEq/L (3.5-5.1); Sodium 136 mEq/L (136-145); eGFR For Non-African Americans > 60 (> 60)
[2018-02-11] MEDS: Budesonide/Formoterol 160/4.5 1 PUFF INH IH SCH ×2 (07:31→19:52)
[2018-02-11] MEDS: Tiotropium 18 MCG inhalation IH SCH (07:33)
--- NOTE | 2018-02-11 07:48 | Electrocardiograph Report ---
[address] [address] Test Date: 2018-02-10 Pat Name: Suze Massey Department: [id number] Room: 2N3 Gender: F Director Medicare Sales: : 1975 Requested By: [id number] Order Number: [id number] Reading MD: Hudson Stein Measurements Intervals [place] Rate: 106 P: 48 MO: 173 QRS: 40 QRSD: 80 T: 50 QT: 323 QTc: 429 Interpretive Statements Sinus tachycardia Low voltage, precordial leads Electronically Signed On 02-11-2018 7:46:32 EDT by Hudson Stein
[2018-02-11] MEDS ORDERED: Levofloxacin 750 MG/150 ML 750 MG/150 ML BAG IVPB SCH (09:00)
[2018-02-11] MEDS ORDERED: Fluticasone Propionate Nasal 50 MCG/SPRAY BOTTLE NS SCH (09:00)
[2018-02-11] MEDS: Nicotine 21 MG PATCH.TD24 TD SCH (09:16)
--- NOTE | 2018-02-11 10:30 | Internal Med Progress Note ---
Hospitalist Progress Note - Encounter Date of Encounter: 02/11/18 Time of Encounter: 10:30 - Exam Vitals: Temp Pulse Resp BP Pulse Ox 97.8 F 83 16 119/77 93 02/11/18 08:03 02/11/18 08:03 02/11/18 08:03 02/11/18 08:03 02/11/18 08:03 Exam: Gen - Awake, alert, oriented x 3, no acute distress,Obese HEENT - NCAT, PERRLA, EOMI, hearing grossly intact, oropharynx benign CV - RRR, normal S1 and S2, no M/R/G, no BLE edema Resp - Normal WOB, CTAB, no W/R/R GI - Soft, NT/ND, no masses, normal bowel sounds, no HSP Skin - Warm, dry, area of redness along right ricardo Psych - Normal mood and affect, no depression or anxiety - Assessment and Plan (1) Sepsis Current Visit: Yes Status: Acute Assessment and Plan: Sepsis likely 2/2 to pneumonia and cellulitis. Pt has elevated WBC and is febrile. Obtain blood cultures, lactic acid. CXR shows bibasilar opacities. Patient was recently in the hospital for an ER visit. Will start on broad spectrum antibiotics with vancomycin, zosyn and levaquin. 02/11. WBC is trending down and cellulitis is improving (2) Cellulitis Current Visit: Yes Status: Acute Assessment and Plan: Sepsis likely 2/2 to pneumonia and recurrent cellulitis. Pt has elevated WBC and is febrile. Obtain blood cultures, lactic acid. CXR shows bibasilar opacities. Has right leg redness and warmth. Patient was recently in the hospital for an ER visit. Continue on broad spectrum antibiotics with vancomycin, zosyn and levaquin. (3) Pneumonia Current Visit: Yes Status: Acute Assessment and Plan: Mervin LEON. Follow up blood cultures. Continue broad spectrum antibiotics (4) Acute exacerbation of chronic obstructive airways disease Current Visit: No Status: Acute Assessment and Plan: On nebs, steroids and antibiotics (5) DVT prophylaxis Current Visit: No Status: Acute Assessment and Plan: Heparin sc q 12 - Time Spent with Patient Total time spent is greater than 50% in coordination of care (as documented) at patient's floor/unit and/or counseling patient: Internal Medicine: Result - Labs CBC & Chem 7: 02/11/18 05:53 02/11/18 05:53 Labs: Short CBC 02/11/18 Range/Units 05:53 WBC 17.4 H (4.3-11.1) K/mcL Hgb 13.8 (11.5-15.4) g/dL Hct 41.2 (35.3-44.9) % Plt Count 270 (140-400) K/mcL Neutrophils # 16.4 H (1.6-8.9) K/mcL BMP 02/11/18 05:53 Sodium 136 Potassium 4.1 Chloride 110 H Carbon Dioxide 18 L BUN 9 Creatinine 0.82 Glucose 220 H Calcium 9.1 Consult Discharge Plan - Plan Referrals: Vazquez Savage MD [Primary Care Provider] - (1) Sepsis Qualifiers: Sepsis type: sepsis due to unspecified organism Qualified Code(s): A41.9 - Sepsis, unspecified organism (2) Cellulitis Qualifiers: Site of cellulitis: extremity Laterality: right (3) Pneumonia Qualifiers: Pneumonia type: due to unspecified organism Laterality: bilateral Lung location: unspecified part of lung Qualified Code(s): J18.9 - Pneumonia, unspecified organism
[2018-02-12] MEDS: Acetaminophen 325 MG TABLET PO SCH ×2 (00:21→06:28)
[2018-02-12] MEDS: Piperacillin/Tazobactam 3.375 GM in 0.9 % Sodium Chloride Mini Bag 100 ML IVPB SCH ×2 (00:22→08:14)
[2018-02-12] MEDS: Ipratropium/Albuterol Neb 3 ML IH SCH ×3 (04:02→11:10)
[2018-02-12] MEDS: *HR* Heparin 5,000 UNIT/ML VIAL SQ SCH (06:29)
[2018-02-12 07:07] VITALS: BP 117/71
[2018-02-12] MEDS: Budesonide/Formoterol 160/4.5 1 PUFF INH IH SCH (07:50)
[2018-02-12] MEDS: Tiotropium 18 MCG inhalation IH SCH (07:51)
[2018-02-12] MEDS ORDERED: predniSONE 20 MG TABLET PO SCH (09:00)
[2018-02-12 09:12] LABS: Mean Corpuscular HGB Conc 32.7 g/dL (31.6-35.5); Monocytes % 4.6 %; Red Cell Distribution Width 14.6 % (11.5-14.5)
[2018-02-12 09:13] LABS: Basophils # 0.1 K/mcL (0.0-0.2); Basophils % 0.4 %; Eosinophils # 0.1 K/mcL (0.0-0.6); Eosinophils % 0.2 %; Hematocrit 39.2 % (35.3-44.9); Hemoglobin 12.8 g/dL (11.5-15.4); Lymphocytes # 2.5 K/mcL (0.6-4.6); Lymphocytes % 8.8 %; Mean Corpuscular Hemoglobin 30.6 pg (28.0-33.3); Mean Corpuscular Volume 93.8 fL (83.0-100.0); Mean Platelet Volume 10.5 fL (9.4-12.4); Monocytes # 1.3 K/mcL (0.0-1.3); Neutrophils # 24.2 K/mcL (1.6-8.9); Platelet Count 312 K/mcL (140-400); Red Blood Count 4.18 M/mcL (3.82-4.97)
--- NOTE | 2018-02-12 09:14 | Discharge Summary ---
Orders not resulted at time of discharge: Pending orders 02/10/18 18:36 Culture,Blood [BC] Routine 02/12/18 08:50 CBC [Complete Blood Count] [HEME] Routine Date of Encounter: 02/12/18 Time of Encounter: 09:00 - Discharge Diagnosis (1) Sepsis Priority: Primary Status: Acute Assessment and Plan: 42 year old female with pmh of COPD , hypertension, recurrent cellulitis presenting with complaints of right ricardo redness, warmth and pain starting this am. Patient notes she started having fevers and chills last night as well as generalized body aches and malaise. When she woke up her right ricardo was tender, warm, and red and she noticed this was similar to a prior episode of cellulitis and that's why she came to the ER. She also noted worsening cough and shortness of breath that has been going on for about 2 weeks She was assessed with sepsis likely 2/2 to pneumonia and cellulitis. She had elevated WBC and was febrile. CXR also showed bibasilar opacities. Patient had recently been in the hospital and was therefore started on broad spectrum antibiotics with vancomycin, zosyn and levaquin. She was also started on round the clock nebs and IV steroids. She made a sooner than anticipated recovery; the redness and warmth on her right ricardo improved and her shortness of breath improved. She was discharged home on a course of bactrim and a tapering dose of steroids. 35 minutes was spent discharging this patient Qualifiers: Sepsis type: sepsis due to unspecified organism Qualified Code(s): A41.9 - Sepsis, unspecified organism (2) Cellulitis Priority: Secondary Status: Acute Qualifiers: Site of cellulitis: extremity Laterality: right Qualified Code(s): L03.115 - Cellulitis of right lower limb (3) Pneumonia Priority: Secondary Status: Acute Qualifiers: Pneumonia type: due to unspecified organism Laterality: bilateral Lung location: unspecified part of lung Qualified Code(s): J18.9 - Pneumonia, unspecified organism (4) Acute exacerbation of chronic obstructive airways disease Priority: Secondary Status: Acute (5) DVT prophylaxis Priority: Secondary Status: Acute Hospital course: Ms. Massey is a 42 year old female - Time Spent with Patient Total time spent providing and/or coordinating discharge services: - Discharge Medications Prescriptions: predniSONE [PredniSONE] 10 mg PO DAILY 5 Days #5 tablet predniSONE [PredniSONE] 40 mg PO DAILY 5 Days #10 tablet predniSONE [PredniSONE] 20 mg PO DAILY #5 tablet Sulfamethoxazole/Trimeth DS [Bactrim DS] 1 each PO BID 5 Days #10 tablet Home Medications: Albuterol Sulfate [Albuterol Inhaler] 2 puff IH Q4HR PRN #1 inhaler 09/25/16 [Rx ] Tiotropium [Spiriva] 18 mcg IH 0700 #30 capsule 09/25/16 [Rx] Ipratropium/Albuterol Neb [Duoneb] 3 ml IH Q6H PRN #30 vial.neb 08/27/17 [Rx] Budesonide/Formoterol 80/4.5 [Symbicort 80/4.5] 2 puff IH BID 02/10/18 [History ] Ipratropium/Albuterol Sulfate [Combivent Respimat 20-100 Mcg] 2 puff IH BID PRN 02/10/18 [History] Sulfamethoxazole/Trimeth DS [Bactrim DS] 1 each PO BID 5 Days #10 tablet [Rx] predniSONE [PredniSONE] 10 mg PO DAILY 5 Days #5 tablet 02/12/18 [Rx] predniSONE [PredniSONE] 20 mg PO DAILY #5 tablet 02/12/18 [Rx] predniSONE [PredniSONE] 40 mg PO DAILY 5 Days #10 tablet 02/12/18 [Rx] Allergies/Adverse Reactions: 3 Allergy/AdvReac Type Severity Reaction Status Date / Time codeine AdvReac Nausea Verified 02/10/18 19:29 Date of admission: 02/10/18 16:24 Primary care physician: Vazquez Savage MD - Constitutional Vitals: Temp Pulse Resp BP Pulse Ox 97.6 F 62 18 117/71 95 02/12/18 07:05 02/12/18 07:05 02/12/18 07:51 02/12/18 07:05 02/12/18 07:51 Exam: Gen - Awake, alert, oriented x 3, no acute distress,Obese HEENT - NCAT, PERRLA, EOMI, hearing grossly intact, oropharynx benign CV - RRR, normal S1 and S2, no M/R/G, no BLE edema Resp - Normal WOB, CTAB, no W/R/R GI - Soft, NT/ND, no masses, normal bowel sounds, no HSP Skin - Warm, dry, area of redness along right ricardo. Improved Psych - Normal mood and affect, no depression or anxiety - Patient Status Disposition: Home, Self-Care Condition: Good - Discharge Instructions Instructions: Sulfamethoxazole/Trimethoprim (By mouth), Prednisone (By mouth), Cellulitis (DC), Chronic Obstructive Pulmonary Disease (DC), Sepsis (DC), Pneumonia (DC) Follow Up With: Vazquez Savage MD [Primary Care Provider] - 02/19/18 2:15 pm Forms: Inpatient Work/School Release
[2018-02-12] MEDS: Nicotine 21 MG PATCH.TD24 TD SCH (09:44)
[2018-02-12 10:33] LABS: Platelet Estimate Normal (Normal)
[2018-02-12] MEDS ORDERED: Aminoglycoside Consult 1 EACH MC ONE (12:20)
== END 2018-02-12 12:21 | disposition home or self-care (01) | DRG 871 ==
LOC: 2NENU 11:53 → EMEROOARM 11:53 → 2NENU 16:11 → SUATTDRO 16:24 → 2NENU 17:22
PROVIDERS: ADMIT Student in an Organized Health Care Education/Training Program; ATTEND Student in an Organized Health Care Education/Training Program

== ENCOUNTER 2021-08-16 17:19 | Inpatient (IN) ==
[2021-08-16] MEDS ORDERED: Cefepime HCl 2,000 MG in 0.9 % Sodium Chloride 10 ML IVP ONE (18:46)
[2021-08-16] MEDS ORDERED: 0.9 % Sodium Chloride 1,000 ML IVC ONE (18:46)
[2021-08-16] MEDS ORDERED: Vancomycin 1,750 MG/517.5 ML IV.SOLN IVPB ONE (19:00)
[2021-08-16 19:51] LABS: Basophils # 0.2 K/mcL (0.0-0.2); Eosinophils # 0.3 K/mcL (0.0-0.6); Eosinophils % 1.4 %; Hemoglobin 15.5 g/dL (11.5-15.4); Immature Granulocytes % 4.2 % (0-4); Lymphocytes # 3.1 K/mcL (0.6-4.6); Lymphocytes % 17.1 %; Mean Corpuscular Hemoglobin 31.6 pg (28.0-33.3); Mean Corpuscular Volume 95.9 fL (83.0-100.0); Mean Platelet Volume 9.9 fL (9.4-12.4); Monocytes # 0.8 K/mcL (0.0-1.3); Monocytes % 4.2 %; Neutrophils # 13.2 K/mcL (1.6-8.9); Platelet Count 398 K/mcL (140-400); Red Cell Distribution Width 12.9 % (11.5-14.5); Segmented Neutrophils % 72.1 %; White Blood Count 18.4 K/mcL (4.3-11.1)
[2021-08-16 20:08] LABS: Alanine Aminotransferase 16 Units/L (7-52); Albumin 3.7 g/dL (3.5-5.7); Alkaline Phosphatase 67 Units/L (34-104); Aspartate Amino Transferase 15 Units/L (13-39); BUN/Creatinine Ratio 10 (6-26); Bilirubin,Direct 0.1 mg/dL (0.0-0.2); Bilirubin,Indirect 0.3 mg/dL (0.0-1.0); Bilirubin,Total 0.4 mg/dL (0.3-1.0); Blood Urea Nitrogen 10 mg/dL (6-20); Calcium 9.3 mg/dL (8.6-10.3); Carbon Dioxide 27 mEq/L (23-29); Chloride 101 mEq/L (98-107); Globulin 3.7 g/dL (2.4-3.5); Glucose 117 mg/dL (70-105); Magnesium 2.2 mg/dL (1.6-2.6); Osmolality,Calculated 282 (280-300); Phosphorous 2.6 mg/dL (2.7-4.5); Potassium 3.5 mEq/L (3.5-5.1); Sodium 136 mEq/L (136-145); Total Protein 7.4 g/dL (6.4-8.9); eGFR For African Americans > 60 (> 60); eGFR For Non-African Americans > 60 (> 60)
[2021-08-16] MEDS ORDERED: Melatonin 3 MG TABLET PO PRN (21:54)
[2021-08-16] MEDS ORDERED: Naloxone 0.4 MG/ML INJ IVP PRN (21:54)
[2021-08-16] MEDS ORDERED: Ondansetron 4 MG/2 ML VIAL IVP PRN (21:54)
[2021-08-16] MEDS ORDERED: Acetaminophen 325 MG TABLET PO PRN (21:54)
[2021-08-17 05:55] LABS: Basophils # 0.1 K/mcL (0.0-0.2); Basophils % 0.4 %; Eosinophils # 0.4 K/mcL (0.0-0.6); Eosinophils % 2.5 %; Hematocrit 41.9 % (35.3-44.9); Immature Granulocytes % 4.7 % (0-4); Lymphocytes # 2.8 K/mcL (0.6-4.6); Mean Corpuscular HGB Conc 32.2 g/dL (31.6-35.5); Mean Corpuscular Hemoglobin 31.4 pg (28.0-33.3); Mean Corpuscular Volume 97.4 fL (83.0-100.0); Mean Platelet Volume 10.2 fL (9.4-12.4); Monocytes # 1.1 K/mcL (0.0-1.3); Monocytes % 6.9 %; Neutrophils # 11.1 K/mcL (1.6-8.9); Platelet Count 351 K/mcL (140-400); Red Cell Distribution Width 13.1 % (11.5-14.5); Segmented Neutrophils % 68.5 %; White Blood Count 16.2 K/mcL (4.3-11.1)
[2021-08-17 06:03] LABS: Estimated Average Glucose 126 mg/dl; Hemoglobin 13.5 g/dL (11.5-15.4)
[2021-08-17] MEDS: Cefepime HCl 2,000 MG in 0.9 % Sodium Chloride 10 ML IVP SCH ×2 (06:04→17:28)
[2021-08-17] MEDS: Vancomycin 1,250 MG/262.5 ML IV.SOLN IVPB SCH ×2 (06:04→17:39)
[2021-08-17] MEDS: *HR* HYDROcodone/Acet 5/325 mg TABLET PO PRN ×2 (06:10→15:47)
[2021-08-17 06:18] LABS: Alanine Aminotransferase 12 Units/L (7-52); Albumin/Globulin Ratio 1.1 (1.1-2.2); Alkaline Phosphatase 54 Units/L (34-104); Aspartate Amino Transferase 11 Units/L (13-39); BUN/Creatinine Ratio 12 (6-26); Bilirubin,Total 0.3 mg/dL (0.3-1.0); Blood Urea Nitrogen 10 mg/dL (6-20); Calcium 8.2 mg/dL (8.6-10.3); Carbon Dioxide 25 mEq/L (23-29); Chloride 105 mEq/L (98-107); Globulin 2.8 g/dL (2.4-3.5); Glucose 133 mg/dL (70-105); Osmolality,Calculated 281 (280-300); Phosphorous 3.3 mg/dL (2.7-4.5); Potassium 3.6 mEq/L (3.5-5.1); Sodium 135 mEq/L (136-145); Total Protein 5.8 g/dL (6.4-8.9); eGFR For African Americans > 60 (> 60); eGFR For Non-African Americans > 60 (> 60)
[2021-08-17] MEDS: Budesonide/Formoterol 80/4.5 1 PUFF INH IH SCH ×2 (07:55→21:03)
[2021-08-17] MEDS: Fluconazole 150 MG TABLET PO SCH (08:32)
[2021-08-17] MEDS ORDERED: NON-FORMULARY MEDICATION 1 EACH EACH (Ipratropium/Albuterol Sulfate 120 PUFF Inhaler) PO SCH (09:00)
[2021-08-18] MEDS: Cefepime HCl 2,000 MG in 0.9 % Sodium Chloride 10 ML IVP SCH ×2 (05:25→18:44)
[2021-08-18] MEDS: Vancomycin 1,250 MG/262.5 ML IV.SOLN IVPB SCH ×2 (06:31→18:48)
[2021-08-18] MEDS: Budesonide/Formoterol 80/4.5 1 PUFF INH IH SCH ×2 (07:58→20:08)
[2021-08-18] MEDS: Fluconazole 150 MG TABLET PO SCH (08:21)
[2021-08-18] MEDS: *HR* HYDROcodone/Acet 5/325 mg TABLET PO PRN (23:31)
[2021-08-19] MEDS: Vancomycin 1,250 MG/262.5 ML IV.SOLN IVPB SCH ×2 (04:27→17:41)
[2021-08-19] MEDS: Cefepime HCl 2,000 MG in 0.9 % Sodium Chloride 10 ML IVP SCH ×2 (04:27→17:42)
[2021-08-19 05:34] LABS: Basophils % 0.3 %; Eosinophils # 0.3 K/mcL (0.0-0.6); Eosinophils % 2.3 %; Hematocrit 41.8 % (35.3-44.9); Hemoglobin 14.1 g/dL (11.5-15.4); Immature Granulocytes % 4.9 % (0-4); Lymphocytes # 2.1 K/mcL (0.6-4.6); Mean Corpuscular HGB Conc 33.7 g/dL (31.6-35.5); Mean Corpuscular Hemoglobin 32.2 pg (28.0-33.3); Mean Corpuscular Volume 95.4 fL (83.0-100.0); Mean Platelet Volume 10.4 fL (9.4-12.4); Monocytes % 8.2 %; Neutrophils # 8.5 K/mcL (1.6-8.9); Platelet Count 401 K/mcL (140-400); Red Blood Count 4.38 M/mcL (3.82-4.97); Red Cell Distribution Width 12.7 % (11.5-14.5); Segmented Neutrophils % 67.3 %; White Blood Count 12.6 K/mcL (4.3-11.1)
[2021-08-19 05:55] LABS: BUN/Creatinine Ratio 9 (6-26); Blood Urea Nitrogen 8 mg/dL (6-20); Calcium 8.7 mg/dL (8.6-10.3); Carbon Dioxide 28 mEq/L (23-29); Chloride 104 mEq/L (98-107); Glucose 131 mg/dL (70-105); Osmolality,Calculated 286 (280-300); Potassium 4.1 mEq/L (3.5-5.1); Sodium 138 mEq/L (136-145); eGFR For African Americans > 60 (> 60); eGFR For Non-African Americans > 60 (> 60)
[2021-08-19] MEDS: Budesonide/Formoterol 80/4.5 1 PUFF INH IH SCH ×2 (08:14→20:13)
[2021-08-19] MEDS: Fluconazole 150 MG TABLET PO SCH (08:17)
[2021-08-19] MEDS: *HR* HYDROcodone/Acet 5/325 mg TABLET PO PRN (14:31)
[2021-08-20 05:44] LABS: Basophils % 0.3 %; Eosinophils # 0.3 K/mcL (0.0-0.6); Eosinophils % 2.4 %; Hematocrit 42.3 % (35.3-44.9); Hemoglobin 14.2 g/dL (11.5-15.4); Lymphocytes # 2.6 K/mcL (0.6-4.6); Lymphocytes % 19.5 %; Mean Corpuscular HGB Conc 33.6 g/dL (31.6-35.5); Mean Corpuscular Hemoglobin 32.1 pg (28.0-33.3); Mean Corpuscular Volume 95.7 fL (83.0-100.0); Mean Platelet Volume 10.4 fL (9.4-12.4); Monocytes # 1.1 K/mcL (0.0-1.3); Monocytes % 7.8 %; Platelet Count 365 K/mcL (140-400); Red Blood Count 4.42 M/mcL (3.82-4.97); Red Cell Distribution Width 12.8 % (11.5-14.5); White Blood Count 13.4 K/mcL (4.3-11.1)
[2021-08-20 05:50] LABS: Neutrophils # 8.8 K/mcL (1.6-8.9)
[2021-08-20] MEDS: Cefepime HCl 2,000 MG in 0.9 % Sodium Chloride 10 ML IVP SCH ×2 (05:57→16:57)
[2021-08-20] MEDS: Vancomycin 1,250 MG/262.5 ML IV.SOLN IVPB SCH ×2 (05:57→16:57)
[2021-08-20 06:07] LABS: BUN/Creatinine Ratio 11 (6-26); Blood Urea Nitrogen 9 mg/dL (6-20); Calcium 8.8 mg/dL (8.6-10.3); Carbon Dioxide 27 mEq/L (23-29); Chloride 103 mEq/L (98-107); Glucose 82 mg/dL (70-105); Osmolality,Calculated 282 (280-300); Potassium 4.4 mEq/L (3.5-5.1); Sodium 137 mEq/L (136-145); eGFR For African Americans > 60 (> 60); eGFR For Non-African Americans > 60 (> 60)
[2021-08-20] MEDS ORDERED: Isovue-370 500 ML BOTTLE IVP ONE (07:58)
[2021-08-20] MEDS: *HR* HYDROcodone/Acet 5/325 mg TABLET PO PRN ×2 (09:16→22:05)
[2021-08-20] MEDS: Fluconazole 150 MG TABLET PO SCH (09:17)
[2021-08-20] MEDS: Budesonide/Formoterol 80/4.5 1 PUFF INH IH SCH ×2 (10:23→20:11)
[2021-08-20] MEDS: *HR* Heparin 5,000 UNIT/ML VIAL SQ SCH ×2 (14:39→21:58)
[2021-08-21 05:07] LABS: Basophils # 0.1 K/mcL (0.0-0.2); Basophils % 1.1 %; Eosinophils # 0.3 K/mcL (0.0-0.6); Eosinophils % 2.4 %; Hematocrit 42.9 % (35.3-44.9); Hemoglobin 14.2 g/dL (11.5-15.4); Immature Granulocytes % 2.5 % (0-4); Lymphocytes # 2.7 K/mcL (0.6-4.6); Lymphocytes % 20.4 %; Mean Corpuscular HGB Conc 33.1 g/dL (31.6-35.5); Mean Corpuscular Hemoglobin 31.3 pg (28.0-33.3); Mean Corpuscular Volume 94.7 fL (83.0-100.0); Mean Platelet Volume 9.3 fL (9.4-12.4); Monocytes # 0.9 K/mcL (0.0-1.3); Neutrophils # 8.7 K/mcL (1.6-8.9); Platelet Count 430 K/mcL (140-400); Red Blood Count 4.53 M/mcL (3.82-4.97); Segmented Neutrophils % 66.6 %; White Blood Count 13.1 K/mcL (4.3-11.1)
[2021-08-21 05:24] LABS: BUN/Creatinine Ratio 10 (6-26); Blood Urea Nitrogen 9 mg/dL (6-20); Carbon Dioxide 26 mEq/L (23-29); Chloride 103 mEq/L (98-107); Glucose 92 mg/dL (70-105); Osmolality,Calculated 280 (280-300); Potassium 4.5 mEq/L (3.5-5.1); Sodium 136 mEq/L (136-145); eGFR For African Americans > 60 (> 60); eGFR For Non-African Americans > 60 (> 60)
[2021-08-21] MEDS: Vancomycin 1,250 MG/262.5 ML IV.SOLN IVPB SCH ×2 (05:38→17:56)
[2021-08-21] MEDS: Cefepime HCl 2,000 MG in 0.9 % Sodium Chloride 10 ML IVP SCH ×2 (05:38→17:17)
[2021-08-21] MEDS: *HR* Heparin 5,000 UNIT/ML VIAL SQ SCH ×3 (05:39→21:28)
[2021-08-21] MEDS: Budesonide/Formoterol 80/4.5 1 PUFF INH IH SCH ×2 (07:56→20:27)
[2021-08-21] MEDS: Fluconazole 150 MG TABLET PO SCH (08:32)
[2021-08-21] MEDS: *HR* HYDROcodone/Acet 5/325 mg TABLET PO PRN (21:29)
[2021-08-22] MEDS: *HR* Heparin 5,000 UNIT/ML VIAL SQ SCH (05:48)
[2021-08-22] MEDS: Cefepime HCl 2,000 MG in 0.9 % Sodium Chloride 10 ML IVP SCH (05:55)
[2021-08-22] MEDS: Vancomycin 1,250 MG/262.5 ML IV.SOLN IVPB SCH (05:56)
[2021-08-22] MEDS: Fluconazole 150 MG TABLET PO SCH (07:21)
[2021-08-22 07:47] VITALS: BP 117/76; PULSE 76; TEMP 98
[2021-08-22] MEDS: Budesonide/Formoterol 80/4.5 1 PUFF INH IH SCH (08:06)
[2021-08-22 08:08] VITALS: O2SAT 96
== END 2021-08-22 10:35 | disposition home or self-care (01) | DRG 720 ==
LOC: EMEROOARM 17:19 → 3ANU 17:19 → SUATTDRO 08-18 10:45
PROVIDERS: ADMIT Internal Medicine; ATTEND Internal Medicine